=== PATIENT | female | born 1950 | race Caucasian/White ===

== ENCOUNTER 2016-12-12 10:15 | Day surgery (SDC) | payer OTHER ==
--- NOTE | ~2016-12-12 | EGD ---
EGD REPORT [facility] [address] [place] [address] NAME: MARII MCRAE : [birth year] STATUS : REG [facility]#: [id number] AGE: 66 ADM/REG DATE : 12/12/16 MR#: [id number] REPORT SERV DATE: 12/12/16 DICTATED BY: WINSTON RAO DATE: 12/12/16 REPORT STATUS : Draft [facility] DATE: 12/12/16 Endoscopy Center Patient Name: Marii Mcrae Date of : 1950 Attending MD: WINSTON RAO, Procedure Date No Time: 12/12/2016 Procedure: ERCP Indications: Jaundice, Tumor of the head of pancreas Referring MD: Lacy Mercado Medicines: General Anesthesia Complications: No immediate complications. Estimated blood loss: None Procedure: After obtaining informed consent, the scope was passed under direct vision. Throughout the procedure, the patient's blood pressure, pulse, and oxygen saturations were monitored continuously. The Duodenoscope was introduced through the mouth, and advanced to the duodenum and used to inject contrast into the bile duct. The ERCP was accomplished without difficulty. The patient tolerated the procedure well. Findings: The major papilla was normal. The bile duct was deeply cannulated with the short-nosed traction sphincterotome. Contrast was injected. I personally interpreted the bile duct images. Ductal flow of contrast was adequate. The middle third of the main bile duct contained a single severe stenosis 25 mm in length. One 10 mm by 6 cm covered metal stent was placed into the common bile duct. Bile flowed through the stent. The stent was in good position. This was placed entiredly intraductal. Impression: - The major papilla appeared normal. - A severe biliary stricture was found. Recommendation: - Return to previous diet. - Continue present medications. - Refer to an oncologist. Procedure Code(s): --- Professional --- 98720, Endoscopic retrograde cholangiopancreatography (ERCP); with placement of endoscopic stent into biliary or pancreatic duct, including pre- and post-dilation and guide wire passage, when performed, including sphincterotomy, when performed, each stent Diagnosis Code(s): --- Professional --- K83.1, Obstruction of bile duct EGD REPORT [facility] [address] [place] [address] [place]. [address] NAME: MARII MCRAE : [birth year] STATUS : REG [facility] PAT#: [id number] AGE: 66 ADM/REG DATE : 12/12/16 MR#: [id number] REPORT SERV DATE: 12/12/16 DICTATED BY: WINSTON RAO DATE: 12/12/16 REPORT STATUS : Draft TRANSCRIBED BY: [employer] [employer] DATE: 12/12/16 R17, Unspecified jaundice D49.0, Neoplasm of unspecified behavior of digestive system CPT copyright 2013 [employer]. All rights reserved. The codes documented in this report are preliminary and upon hr operations advisor review may be revised to meet current compliance requirements. WINSTON RAO, 12/12/2016 1:47 PM Number of Addenda: 0 Note Initiated On: 12/12/2016 11:43 AM Scope Withdrawal Time 0 hours 0 minutes 0 seconds [address] [facility] [place] [address]
--- NOTE | ~2016-12-12 | EGD ---
EGD REPORT [facility] [address] [place] [address] NAME: MARII STEWATR : 52 STATUS : REG [facility]#: [id number] AGE: 66 ADM/REG DATE : 12/12/16 MR#: [id number] REPORT SERV DATE: 12/12/16 DICTATED BY: WINSTON ARO DATE: 12/12/16 REPORT STATUS : Draft [facility]: [facility] DATE: 12/12/16 Endoscopy Center Patient Name: Marii Stewart Date of : 1950 Attending MD: WINSTON RAO, Procedure Date No Time: 12/12/2016 Procedure: Upper EUS Indications: Suspected solid pancreatic neoplasm Referring MD: Lacy Mercado Medicines: General Anesthesia Complications: No immediate complications. Estimated blood loss: None. Procedure: Pre-Anesthesia Assessment: - ASA Grade Assessment: III - A patient with severe systemic disease. After obtaining informed consent, the endoscope was passed under direct vision. Throughout the procedure, the patient's blood pressure, pulse, and oxygen saturations were monitored continuously. The Endoscope was introduced through the mouth, and advanced to the second part of duodenum. Findings: Endosonographic Finding : An irregular mass was identified in the pancreatic head and in the pancreatic body. The mass was hypoechoic. The mass measured 33 mm by 32 mm in maximal cross-sectional diameter. The endosonographic borders were poorly-defined. There was sonographic evidence suggesting invasion into the splenoportal confluence (manifested by encasement) and the celiac trunk (manifested by encasement). Fine needle aspiration was performed. Color Doppler imaging was utilized prior to needle puncture to confirm a lack of significant vascular structures within the needle path. Six passes were made with the 22 gauge needle. No stylet was used. Final cytology results are pending. There was dilation in the common bile duct which measured up to 12 mm. No lymphadenopathy seen. There was no sign of significant endosonographic abnormality in the examined duodenum. Endosonographic images of the stomach were unremarkable. There was no sign of significant endosonographic abnormality in the esophagus. There was no sign of significant endosonographic abnormality in the esophagus. Impression: - A mass was identified in the pancreatic head and in the pancreatic body. EGD REPORT [address] [address] NAME: MARII STEWART : [birth year] STATUS : [place] [facility] [place]#: [id number] AGE: 66 ADM/REG DATE : 12/12/16 MR#: [id number] REPORT SERV DATE: 12/12/16 DICTATED BY: WINSTON RAO DATE: 12/12/16 REPORT STATUS : Draft TRANSCRIBED BY: [facility] DATE: 12/12/16 - There was dilation in the common bile duct which measured up to 12 mm. - There was no sign of significant pathology in the examined duodenum. - Endosonographic images of the stomach were unremarkable. - There was no sign of significant pathology in the esophagus. - There was no sign of significant pathology in the esophagus. Recommendation: - Return to previous diet. - Continue present medications. - Await cytology results. - Refer to an oncologist. Procedure Code(s): --- Professional --- 66722, Esophagogastroduodenoscopy, flexible, transoral; with transendoscopic ultrasound-guided intramural or transmural fine needle aspiration/biopsy(s) (includes endoscopic ultrasound examination of the esophagus, stomach, and either the duodenum or a surgically altered stomach where the jejunum is examined distal to the anastomosis) Diagnosis Code(s): --- Professional --- K86.8, Other specified diseases of pancreas K83.8, Other specified diseases of biliary tract CPT copyright 2013 [employer]. All rights reserved. The codes documented in this report are preliminary and upon remote coders review may be revised to meet current compliance requirements. WINSTON JALEN, 12/12/2016 1:44 PM Number of Addenda: 0 Note Initiated On: 12/12/2016 11:44 AM Scope Withdrawal Time 0 hours 0 minutes 0 seconds [address] [place] [address]
[~2016-12-12 10:15] MED LIST: ASAB PO; LEVOTHYROXIN88 MCG PO; LIPITOR20 PO; LOP25 PO; NEUR100 PO; NOVOLOG SC; PLAVIX PO; PRIN2.5 PO; TRESIBA FL100 UNIT/1 SC; VIST25 PO
[2016-12-12 10:50] LABS: BUN (BLOOD UREA NITROGEN) 11 MG/DL (6-23); CALCIUM, SERUM 9.3 MG/DL (8.5-10.4); CHLORIDE, SERUM 102 MMOL/L (96-112); CO2 (CARBON DIOXIDE) 30 MMOL/L (24-34); CREATININE 0.63 MG/DL (0.55-1.02); GFR AFRICAN AMERICAN 109 ML/MIN (>=60); GFR NON AFRICAN AMERICAN 94 ML/MIN (>=60); GLUCOSE, SERUM 75 MG/DL (60-99); POTASSIUM, SERUM 3.2 MMOL/L (3.5-5.3); SODIUM, SERUM 141 MMOL/L (135-148)
== END 2016-12-12 23:59 | disposition home or self-care (01) ==
LOC: DMU 10:15
PROVIDERS: Anesthesiology; Internal Medicine Gastroenterology
PROC: 0F798DZ Dilation of Common Bile Duct with Intraluminal Device, Via Natural or Artificial Opening Endoscopic (ICD-10-PCS; 2016-12-12)
PROC: BD47ZZZ Ultrasonography of Gastrointestinal Tract (ICD-10-PCS; principal; 2016-12-12 11:30)
PROC: 0F9G3ZX Drainage of Pancreas, Percutaneous Approach, Diagnostic (ICD-10-PCS; 2016-12-12 11:30)
DX: C25.8 Malignant neoplasm of overlapping sites of pancreas (principal); K83.8 Other specified diseases of biliary tract; I10 Essential (primary) hypertension; I25.10 Atherosclerotic heart disease of native coronary artery without angina pectoris; I25.2 Old myocardial infarction; E78.00 Pure hypercholesterolemia, unspecified; E03.9 Hypothyroidism, unspecified; E11.9 Type 2 diabetes mellitus without complications; M85.80 Other specified disorders of bone density and structure, unspecified site; Z95.5 Presence of coronary angioplasty implant and graft; Z88.1 Allergy status to other antibiotic agents; Z79.82 Long term (current) use of aspirin; Z79.02 Long term (current) use of antithrombotics/antiplatelets; Z79.4 Long term (current) use of insulin; Z79.899 Other long term (current) drug therapy
CPT/HCPCS: 74330; 80048; 88173; 88305; 93005; C1725; C1769; C1876; J0330; J2405; J3010; Q9967

== ENCOUNTER 2016-12-22 13:21 | Day surgery (SDC) | payer OTHER ==
--- NOTE | ~2016-12-22 | EGD ---
EGD REPORT [facility] [address] [place] [address] NAME: MARII STEWART : [birth year] STATUS : REG [facility]#: [id number] AGE: 66 ADM/REG DATE : 12/22/16 MR#: [id number] REPORT SERV DATE: 12/22/16 DICTATED BY: WINSTON RAO DATE: 12/22/16 REPORT STATUS : Draft TRANSCRIBED BY: [facility] DATE: 12/22/16 Endoscopy Center Patient Name: Marii Stewart Date of : 1950 Attending MD: WINSTON RAO, Procedure Date No Time: 12/22/2016 Procedure: ERCP Indications: Jaundice Referring MD: Lacy Mercado Medicines: General Anesthesia Complications: No immediate complications. Estimated blood loss: None Procedure: Pre-Anesthesia Assessment: - ASA Grade Assessment: III - A patient with severe systemic disease. After obtaining informed consent, the scope was passed under direct vision. Throughout the procedure, the patient's blood pressure, pulse, and oxygen saturations were monitored continuously. The TJF [id number] was introduced through the mouth, and advanced to the duodenum and used to inject contrast into the bile duct. The ERCP was accomplished without difficulty. The patient tolerated the procedure well. Findings: A sweeper operator highways film of the abdomen was obtained. One stent ending in the middle third of the main bile duct was seen. The major papilla was normal. The bile duct was deeply cannulated with the short-nosed traction sphincterotome. Contrast was injected. I personally interpreted the bile duct images. Ductal flow of contrast was adequate. The middle third of the main bile duct contained a single localized stenosis 15 mm in length. The stent was fully intraductal. Biliary sphincterotomy was made with a traction (standard) sphincterotome. After sphincterottomy there was not good drainage. There was no post-sphincterotomy bleeding. An attempt was made to remove the stent by inflating a stone extration balloon in duct and sweeping but this was unsuccessful. Could not manipulate Rat tooth forceps into the duct. Dilation of the common bile duct with a 10 mm balloon dilator was successful at the level of the stricture and level of ampulla. One stent was removed from the biliary tree using a rat-toothed forceps. One 10 mm by 6 cm covered metal stent was placed into the common bile duct. Bile flowed through the stent. The stent was in good position with the distal end in the duodenum. . Impression: - The major papilla appeared normal. - A localized biliary stricture was found. - One stent was removed from the biliary tree. EGD REPORT [address] [address] NAME: MARII STEWART : [birth year] STATUS : REG [facility]#: [id number] AGE: 66 ADM/REG DATE : 12/22/16 MR#: [id number] REPORT SERV DATE: 12/22/16 DICTATED BY: WINSTON RAO DATE: 12/22/16 REPORT STATUS : Draft TRANSCRIBED BY: [facility] DATE: 12/22/16 Recommendation: - Return to previous diet. - Continue present medications. - Return to referring physician. Procedure Code(s): --- Professional --- 22103, Endoscopic retrograde cholangiopancreatography (ERCP); with removal and exchange of stent(s), biliary or pancreatic duct, including pre- and post-dilation and guide wire passage, when performed, including sphincterotomy, when performed, each stent exchanged Diagnosis Code(s): --- Professional --- K83.1, Obstruction of bile duct Z46.59, Encounter for fitting and adjustment of other gastrointestinal appliance and device R17, Unspecified jaundice CPT copyright 2013 [employer]. All rights reserved. The codes documented in this report are preliminary and upon grading supervisor review may be revised to meet current compliance requirements. WINSTON RAO, 12/22/2016 5:36 PM Number of Addenda: 0 Note Initiated On: 12/22/2016 4:27 PM Scope Withdrawal Time 0 hours 0 minutes 0 seconds [address] [place] [address]
--- NOTE | ~2016-12-22 | EGD ---
EGD REPORT [facility] [address] [place] [place] [address] NAME: MARII STEWART : 52 STATUS : REG [facility]#: [id number] AGE: 66 ADM/REG DATE : 12/22/16 MR#: [id number] REPORT SERV DATE: 12/22/16 DICTATED BY: WINSTON RAO DATE: 12/22/16 REPORT STATUS : Draft TRANSCRIBED BY: [facility] DATE: 12/22/16 Endoscopy Center Patient Name: Marii Stewart Date of : 1950 Attending MD: WINSTON RAO, Procedure Date No Time: 12/22/2016 Procedure: Upper EUS Indications: Pancreatic adenocarcinoma, For celiac plexus neurolysis Referring MD: RAISA Dang MD Medicines: General Anesthesia Complications: No immediate complications. Estimated blood loss: None. Procedure: Pre-Anesthesia Assessment: - ASA Grade Assessment: III - A patient with severe systemic disease. After obtaining informed consent, the endoscope was passed under direct vision. Throughout the procedure, the patient's blood pressure, pulse, and oxygen saturations were monitored continuously. The Endoscope was introduced through the mouth, and advanced to the second part of duodenum. Findings: Endosonographic Finding : The region of the celiac plexus and celiac ganglia was visualized. Celiac plexus neurolysis was performed. The region of the celiac plexus and celiac ganglia was identified endosonographically with Color Doppler imaging, using the take-off of the celiac trunk from the anterior aspect of the aorta as the main anatomical landmark. Color Doppler guidance was also used to confirm a lack of significant vascular structures within the injection needle path. Using a transgastric approach, a 22 gauge needle was advanced to the area of the celiac plexus. Needle aspiration was performed prior to injection to exclude entry into a blood vessel. A total of 10 mL of 0.75% bupivacaine and 20 (twenty) mL of absolute alcohol were injected for the celiac plexus neurolysis. The needle was then withdrawn. Impression: - Celiac plexus neurolysis performed. Recommendation: - Return to previous diet. - Continue present medications. Procedure Code(s): --- Professional --- 23321, Esophagogastroduodenoscopy, flexible, transoral; with transendoscopic ultrasound-guided transmural injection of diagnostic or therapeutic substance(s) (eg, EGD REPORT [place] [address] [place]. [address] NAME: MARII STEWART : 52 STATUS : REG [facility] PAT#: [id number] AGE: 66 ADM/REG DATE : 12/22/16 MR#: [id number] REPORT SERV DATE: 12/22/16 DICTATED BY: WINSTON RAO DATE: 12/22/16 REPORT STATUS : Draft TRANSCRIBED BY: [employer] DATE: 12/22/16 anesthetic, neurolytic agent) or fiducial marker(s) (includes endoscopic ultrasound examination of the esophagus, stomach, and either the duodenum or a surgically altered stomach where the jejunum is examined distal to the anastomosis) Diagnosis Code(s): --- Professional --- C25.9, Malignant neoplasm of pancreas, unspecified CPT copyright 2013 [employer]. All rights reserved. The codes documented in this report are preliminary and upon cooler room worker review may be revised to meet current compliance requirements. WINSTON RAO, 12/22/2016 5:32 PM Number of Addenda: 0 Note Initiated On: 12/22/2016 4:22 PM Scope Withdrawal Time 0 hours 0 minutes 0 seconds [address] [place] [address]
[2016-12-22 14:08] LABS: POTASSIUM, SERUM 3.4 MMOL/L (3.5-5.3)
[2016-12-22 15:01] LABS: BUN (BLOOD UREA NITROGEN) 12 MG/DL (6-23); CALCIUM, SERUM 9.1 MG/DL (8.5-10.4); CHLORIDE, SERUM 103 MMOL/L (96-112); CO2 (CARBON DIOXIDE) 29 MMOL/L (24-34); CREATININE 0.59 MG/DL (0.55-1.02); GFR AFRICAN AMERICAN 111 ML/MIN (>=60); GFR NON AFRICAN AMERICAN 96 ML/MIN (>=60); GLUCOSE, SERUM 79 MG/DL (60-99); SODIUM, SERUM 140 MMOL/L (135-148)
== END 2016-12-22 20:10 | disposition home or self-care (01) ==
LOC: DMU 13:21
PROVIDERS: Anesthesiology; Internal Medicine Gastroenterology
PROC: 0F798DZ Dilation of Common Bile Duct with Intraluminal Device, Via Natural or Artificial Opening Endoscopic (ICD-10-PCS; 2016-12-22)
PROC: 3E0 Administration, Physiological Systems and Anatomical Regions, Introduction (ICD-10-PCS; principal; 2016-12-22 15:30)
PROC: BD47ZZZ Ultrasonography of Gastrointestinal Tract (ICD-10-PCS; 2016-12-22 15:30)
PROC: 3E0G8GC Introduction of Other Therapeutic Substance into Upper GI, Via Natural or Artificial Opening Endoscopic (ICD-10-PCS; 2016-12-22 15:30)
PROC: 0FPB8DZ Removal of Intraluminal Device from Hepatobiliary Duct, Via Natural or Artificial Opening Endoscopic (ICD-10-PCS; 2016-12-22 15:30)
DX: C25.9 Malignant neoplasm of pancreas, unspecified (principal); K83.1 Obstruction of bile duct; R17 Unspecified jaundice; I10 Essential (primary) hypertension; I25.10 Atherosclerotic heart disease of native coronary artery without angina pectoris; I25.2 Old myocardial infarction; E03.9 Hypothyroidism, unspecified; E11.9 Type 2 diabetes mellitus without complications; E78.00 Pure hypercholesterolemia, unspecified; M85.80 Other specified disorders of bone density and structure, unspecified site; Z95.5 Presence of coronary angioplasty implant and graft; Z88.1 Allergy status to other antibiotic agents; Z79.82 Long term (current) use of aspirin; Z79.02 Long term (current) use of antithrombotics/antiplatelets; Z79.4 Long term (current) use of insulin; Z79.899 Other long term (current) drug therapy; Z87.891 Personal history of nicotine dependence; Z98.890 Other specified postprocedural states
CPT/HCPCS: 74330; 80048; 82962; 93005; C1725; C1769; C1876; J2405; J2710; J3010; Q9967

== ENCOUNTER 2017-01-02 09:21 | Day surgery (SDC) | payer OTHER ==
--- NOTE | ~2017-01-02 | OP ---
Record Of Operation [facility] [address] [place]. [address] NAME: RAYMUNDO MCRAE : 52 STATUS : REG [facility] PAT#: [id number] AGE: 66 ADM/REG DATE : 01/02/17 MR#: [id number] REPORT SERV DATE: 01/02/17 DICTATED BY: ERNESTO BALL DATE: 01/02/17 REPORT STATUS : Draft TRANSCRIBED BY: MODL DATE: 01/02/17 DATE OF PROCEDURE: 01/02/2017 PREOPERATIVE DIAGNOSES: 1. Pancreatic cancer with need for central IV access. 2. Diabetes mellitus type 2. 3. Hypertension. 4. Coronary artery disease with stent placement. 5. Hypothyroidism. POSTOPERATIVE DIAGNOSES: 1. Pancreatic cancer with need for central IV access. 2. Diabetes mellitus type 2. 3. Hypertension. 4. Coronary artery disease with stent placement. 5. Hypothyroidism. PROCEDURE: Left subclavian vein Port-A-Cath placement. ANESTHESIA: IV sedation with local. SURGEON: Ernesto Ball M.D. CONTINUOUS IMPROVEMENT DIRECTOR: Airel. COMPLICATIONS: None. DRAINS: None. ESTIMATED BLOOD LOSS: 10 mL. OPERATIVE TECHNIQUE: The patient was brought to the operating room and placed on the table in supine position. She had preoperative IV antibiotics. She had sequential hose in place. She voided prior to the procedure. She underwent adequate IV sedation and was prepped and draped in the sterile fashion, and time-out was completed with the shoulder roll parallel over the spine. After local anesthesia was instilled to the left subclavian space, a field block was then completed. The patient was placed in Trendelenburg. A needle was used to access the vein and a wire was passed via Seldinger technique in the central venous system. The 15 blade knife was then used to make an incision transversely at the wire insertion site. A pocket was then created inferiorly on the chest wall and then preassembled, and flushed catheter was secured to the chest wall with interrupted three-point fixation with Ethibond sutures. It was then cut to length with the aid of fluoroscopy. The dilator and sheaths were placed over the wire, and the wire and dilator were removed. The catheter was then advanced fully through the sheath, and the sheath was peeled away. The Port-A-Cath as well was then accessed, noted to aspirate easily, and was flushed with heparinized solution. The operative pocket was then irrigated and noted to be hemostatic. The subcutaneous Record Of Operation [address] [place]. [address] NAME: RAYMUNDO MCRAE : [birth year] STATUS : REG [facility] PAT#: [id number] AGE: 66 ADM/REG DATE : 01/02/17 MR#: [id number] REPORT SERV DATE: 01/02/17 DICTATED BY: ERNESTO BALL DATE: 01/02/17 REPORT STATUS : Draft TRANSCRIBED BY: MODL DATE: 01/02/17 tissues were reapproximated using running 3-0 Vicryl suture followed by running Monocryl subcuticular stitch and Dermabond. The patient was taken to the recovery room in stable condition. All sponge and needle counts reported correct. Chest x-ray will be ordered. /FLORA Ernesto Ball M.D. / [id number] CC: Romana EvansSEY PURA Booker M.D.
[2017-01-02 09:50] LABS: HEMATOCRIT 34.4 % (36.0-48.0); HEMOGLOBIN 11.6 g/dL (12.0-16.0)
== END 2017-01-02 18:03 | disposition home or self-care (01) ==
LOC: SDC 09:21
PROVIDERS: Surgery
PROC: 0JH60XZ Insertion of Tunneled Vascular Access Device into Chest Subcutaneous Tissue and Fascia, Open Approach (ICD-10-PCS; principal; 2017-01-02 10:45)
DX: C25.9 Malignant neoplasm of pancreas, unspecified (principal); E11.9 Type 2 diabetes mellitus without complications; I10 Essential (primary) hypertension; I25.10 Atherosclerotic heart disease of native coronary artery without angina pectoris; E78.00 Pure hypercholesterolemia, unspecified; I25.2 Old myocardial infarction; M85.80 Other specified disorders of bone density and structure, unspecified site; E03.9 Hypothyroidism, unspecified; Z95.5 Presence of coronary angioplasty implant and graft; Z88.8 Allergy status to other drugs, medicaments and biological substances
CPT/HCPCS: 71010; 77001; 82962; 85014; 85018; C1751; J0690; J2250; J2370; J3010; Q9967